=== PATIENT | female | born 1975 | race Caucasian/White ===

== ENCOUNTER 2021-04-01 02:11 | Emergency (ER) | payer MEDICARE, OTHER ==
[~2021-04-01] VITALS: Ht 165.1 cm; Wt 102.0 kg
[~2021-04-01 02:11] MED LIST: ASPI-1444 PO; ATOR20TA86 PO; ESOM20CA31 PO; MULT-29 PO; QUET400T PO
[2021-04-01 02:31] VITALS: BP 116/74
[2021-04-01] MEDS ORDERED: BACITRACIN 0.9 GM PACKET OINTMENT TP ONE (03:45)
== END 2021-04-01 08:46 | disposition home or self-care (01) ==
LOC: EMS 02:25
DX: L73.9 Follicular disorder, unspecified (principal); J44.9 Chronic obstructive pulmonary disease, unspecified; I48.91 Unspecified atrial fibrillation
CPT/HCPCS: 99282; Z7502; Z7610